=== PATIENT | male | born 1995 | race African-American/Black ===

== ENCOUNTER 2016-09-21 17:01 | Emergency (ER) | payer MEDICAID ==
[~2016-09-21] VITALS: Ht 180.3 cm; Wt 69.0 kg
[2016-09-21 17:56] VITALS: BP 115/65
== END 2016-09-21 17:57 | disposition home or self-care (01) ==
LOC: ER 17:02
DX: B36.0 Pityriasis versicolor (principal)
CPT/HCPCS: 99283